=== PATIENT | female | born 1985 | race African-American/Black ===

== ENCOUNTER 2020-05-23 20:39 | Emergency (ER) | payer MEDICAID ==
[~2020-05-23] VITALS: Ht 170.2 cm; Wt 73.0 kg
[2020-05-24 00:04] LABS: CLARITY URINE CLOUDY (CLEAR); COLOR URINE DARK YELLOW (YELLOW); KETONES URINE NEGATIVE (NEGATIVE); LEUKOCYTE ESTERASE URINE 3+ (NEGATIVE); NITRITE URINE POSITIVE (NEGATIVE); OCCULT BLOOD URINE NEGATIVE (NEGATIVE); PH URINE 6.5 (4.5-8.0); PROTEIN URINE 2+ (NEGATIVE); SPECIFIC GRAVITY URINE 1.032 (1.005-1.030)
[2020-05-24 00:20] VITALS: BP 122/83
== END 2020-05-24 00:30 | disposition home or self-care (01) ==
LOC: ER 20:39
DX: N39.0 Urinary tract infection, site not specified (principal)
CPT/HCPCS: 81003; 87077; 87186; 99283

== ENCOUNTER 2023-04-07 20:53 | Emergency (ER) | payer MEDICAID ==
[~2023-04-07] VITALS: Ht 168.9 cm; Wt 76.5 kg
[2023-04-07 21:02] VITALS: BP 117/74; O2SAT 99
[2023-04-07] MEDS ORDERED: LEVO1.5T37 MT (22:34)
[2023-04-07 22:45] VITALS: PULSE 60; RESP 16; TEMP 98.6
== END 2023-04-07 22:45 | disposition home or self-care (01) ==
LOC: ER 20:53
DX: N39.9 Disorder of urinary system, unspecified (principal)
CPT/HCPCS: 81025; 99282